=== PATIENT | female | born 1990 | race African-American/Black ===

== ENCOUNTER 2016-09-19 22:57 | Inpatient (IN) | payer MEDICAID ==
[2016-09-19] MEDS ORDERED: RINGERS SOLUTION,LACTATED 1,000 ML IV PRN (23:25)
[2016-09-19] MEDS ORDERED: OXYTOCIN/DEXTROSE 5%-WATER 30 UNITS/500 ML BAG IV ONE (23:25)
[2016-09-19] MEDS ORDERED: LIDOCAINE HCL 50 ML VIAL PERI PRN (23:25)
[2016-09-20] MEDS: RINGERS SOLUTION,LACTATED 1,000 ML IV ONE ×2 (00:10→03:55)
[2016-09-20] MEDS ORDERED: ONDANSETRON HCL/PF 2 MG/ML VIAL IV PRN (00:56)
[2016-09-20] MEDS ORDERED: BUPIVACAINE HCL/0.9 % NACL/PF 250 ML EP PRN (00:56)
[2016-09-20] MEDS ORDERED: BUPIVACAINE HCL/PF 30 ML VIAL EP ONE (00:56)
[2016-09-20] MEDS ORDERED: NALOXONE HCL 1 MG/1 ML SYRG IV PRN (00:56)
[2016-09-20] MEDS: DEXTROSE 5%-LACTATED RINGERS 1,000 ML IV PRN ×2 (01:13→05:46)
--- NOTE | 2016-09-20 01:47 | OR ---
Anesthesia Procedure Note - Anesthesia Procedure Note Date of Service: 09/20/16 Narrative: Vital Signs - Last Taken Temp 36.8 C 09/20/16 01:22 Pulse 97 09/20/16 01:22 Resp 18 09/20/16 01:22 BP 132/82 09/20/16 01:22 Pulse Ox 93 09/20/16 01:22 09/20/16 01:45 ANESTHESIA PROCEDURE NOTE Date of Procedure: 09/20/2016. Time of procedure: 0125. Performed by: Gabriel Juarez CRNA [place]: None. Preprocedure diagnosis: Active labor. Post procedure diagnosis: Same. Procedure: Insertion of labor epidural. Indications: The patient is a 26 -year-old -[place] female in active labor requesting labor epidural for pain management. Findings: See below. Details of the procedure: The patient was placed in a sitting position. DuraPrep as well as Betadine swabs 3 was applied to the patient's back. Patient was then draped in a sterile fashion. Lidocaine 1% was infiltrated to the skin and subcutaneous tissues at the level of the L3 4 interspace. The epidural space was identified using a 18-gauge Tuohy needle with loss-of- resistance technique. Epidural catheter was inserted to a depth of 12 centimeters at skin. Negative test dose was elicited using 3 mL of 1.5% preservative-free lidocaine plus epinephrine 1 200,000. The epidural catheter was then taped and secured in place. A loading dose of 8 mL of 0.25% preservative-free bupivacaine was administered to the epidural catheter after negative aspiration for blood and CSF. EBL: Minimal. Fluids: N/A. Specimen: N/A. Post procedure condition: The patient tolerated the procedure well. No complications were noted. Thank you for this consultation. Gabriel Juarez CRNA
[2016-09-20] MEDS ORDERED: RINGERS SOLUTION,LACTATED 500 ML IV ONE (03:27)
[2016-09-20] MEDS ORDERED: HYDROCORTISONE 30 APPL TUBE TP PRN (08:08)
[2016-09-20] MEDS ORDERED: oxyCODONE HCL/ACETAMINOPHEN 1 TAB TABLET PO PRN (08:08)
[2016-09-20] MEDS ORDERED: BENZOCAINE/MENTHOL 81 SPRAY CAN TP PRN (08:08)
[2016-09-20] MEDS ORDERED: SENNOSIDES 8.6 MG TABLET PO PRN (08:08)
[2016-09-20] MEDS ORDERED: GLYCERIN/WITCH HAZEL LEAF 40 APPL BOX TP PRN (08:08)
[2016-09-20] MEDS ORDERED: BISACODYL 10 MG SUPP.RECT RC PRN (08:08)
[2016-09-20] MEDS ORDERED: OXYTOCIN/DEXTROSE 5%-WATER 30 UNITS/500 ML BAG IV ONE (08:08)
--- NOTE | 2016-09-20 08:11 | OR ---
Operative Report - Dictated Report Narrative: Spontaneous Vaginal Delivery Viable female with APGARS of 5 at 1 minute and 8 at 5 minutes. She delivered at 0749. Presentation was ANGIE. A tight nuchal cord was reduced at the perineum. The right anterior shoulder delivered with gentle downward traction followed by the left shoulder and the remainder of the baby. Terminal meconium was noted. The baby was placed on the maternal abdomen and dried and stimulated. The cord was then clamped and cut and the baby was taken to the warmer due to poor tone. Weight: 3400 g or 7 pounds 7.9 ounces Placenta was delivered spontaneously and intact. No lacerations were noted. Estimated blood loss: 100 ml Mother and baby tolerated delivery well.
[2016-09-20] MEDS: IBUPROFEN 800 MG TABLET PO PRN ×2 (10:20→17:01)
[2016-09-20] MEDS: oxyCODONE HCL/ACETAMINOPHEN 1 TAB TABLET PO PRN ×2 (17:00→22:33)
[2016-09-20] MEDS: DOCUSATE SODIUM 100 MG CAPSULE PO SCH ×2 (17:01→22:33)
[2016-09-21] MEDS: oxyCODONE HCL/ACETAMINOPHEN 1 TAB TABLET PO PRN ×2 (09:25→21:02)
[2016-09-21] MEDS: IBUPROFEN 800 MG TABLET PO PRN ×2 (09:25→21:02)
[2016-09-21] MEDS: DOCUSATE SODIUM 100 MG CAPSULE PO SCH ×2 (09:25→21:05)
--- NOTE | 2016-09-21 11:21 | PN ---
Subjective - Date and Time Seen Date: 09/21/16 Subjective Narrative: day 1, s/p doing well. no complaints. . normal lochia. ambulating well. Objective - Vitals Vitals: Last Vital Signs Temp 36.9 C 09/21/16 09:41 Pulse 65 09/21/16 09:41 Resp 20 09/21/16 09:41 BP 121/80 09/21/16 09:41 Pulse Ox 100 09/21/16 09:41 - Exam Constitutional: Present: Alert, Oriented x3, Cooperative Respiratory: Present: no respiratory distress Cardiovascular/Chest: Present: normal peripheral pulses Abdomen: Present: soft, nontender, nondistended, other - fundus firm at umbilicus Extremity: Present: normal range of motion, no pedal edema, no calf tenderness Skin Exam: Present: warm/dry Eye contact: Present: cooperative, good eye contact, normal speech Cauti Physician Documentation - Urinary Catheter Management Urethral ([place]) Date of Insertion: 09/20/16 Time of Insertion: 02:30 Assessment/Plan Plan Narrative: A: PPD#1, s/p stable and well. Plan: routine care. ambulation encouraged. Cesar Carrasco MD
[2016-09-21 18:46] VITALS: BP 124/71
[2016-09-22] MEDS: IBUPROFEN 800 MG TABLET PO PRN (09:50)
[2016-09-22] MEDS: oxyCODONE HCL/ACETAMINOPHEN 1 TAB TABLET PO PRN (09:50)
[2016-09-22] MEDS: DOCUSATE SODIUM 100 MG CAPSULE PO SCH (09:51)
--- NOTE | 2016-09-22 10:30 | PN ---
Subjective - Date and Time Seen Date: 09/22/16 Subjective Narrative: day 2, s/p No complaints. . Normal lochia. Objective - Vitals Vitals: Last Vital Signs Temp 36.1 C L 09/21/16 18:42 Pulse 82 09/21/16 18:42 Resp 16 09/21/16 18:42 BP 124/71 09/21/16 18:42 Pulse Ox 100 09/21/16 18:42 - Exam Constitutional: Present: Alert, Oriented x3, Cooperative Respiratory: Present: no respiratory distress Cardiovascular/Chest: Present: normal peripheral pulses Abdomen: Present: soft, nontender, nondistended, other - fundus firm Extremity: Present: normal range of motion, no pedal edema, no calf tenderness Eye contact: Present: cooperative, good eye contact, normal speech Cauti Physician Documentation - Urinary Catheter Management Urethral ([place]) Date of Insertion: 09/20/16 Time of Insertion: 02:30 Assessment/Plan Plan Narrative: A: postparutm day 2, s/p , well Plan: will discharge home today. Cesar Carrasco MD
== END 2016-09-22 14:00 | disposition home or self-care (01) | DRG 775 ==
LOC: OBCLINIC 22:57 → OB 23:19
PROVIDERS: ADMIT Obstetrics & Gynecology Gynecologic Oncology; ATTEND Obstetrics & Gynecology Gynecologic Oncology
PROC: 10E0XZZ Delivery of Products of Conception, External Approach (ICD-10-PCS; principal; 2016-09-20)
PROC: 4A1HXCZ Monitoring of Products of Conception, Cardiac Rate, External Approach (ICD-10-PCS; 2016-09-20)
PROC: 3E0S3CZ (ICD-10-PCS; 2016-09-20)
DX: O69.1XX0 Labor and delivery complicated by cord around neck, with compression, not applicable or unspecified (principal); O77.0 Labor and delivery complicated by meconium in amniotic fluid; O99.02 Anemia complicating childbirth; D64.9 Anemia, unspecified; Z3A.40 40 weeks gestation of pregnancy; Z37.0 Single live birth